=== PATIENT | female | born 1985 | race Caucasian/White ===

== ENCOUNTER → 2019-11-17 | Outpatient (CLI) | payer OTHER ==
[~2019-11-17] MED LIST: CLON0.5T PO; DULO30CA2 PO; LAMO100T37 PO; OMEP40CA45 PO
== END | disposition home or self-care (01) ==
LOC: LAB 13:49
PROVIDERS: ATTEND Nurse Anesthetist, Certified Registered
DX: Z01.818 Encounter for other preprocedural examination (principal); Z11.59 Encounter for screening for other viral diseases; Z12.11 Encounter for screening for malignant neoplasm of colon; Z85.038 Personal history of other malignant neoplasm of large intestine
CPT/HCPCS: U0003-CS

== ENCOUNTER → 2019-11-20 | Day surgery (SDC) | payer OTHER ==
[~2019-11-20] MED LIST changes: +IPRATRPIUM/ALBUTEROL 0.5/2.5MG 3 ML NEBU. NEB PRN; +IV RINGERS SOLUTION,LACTATED 1,000 ML IV SCH; +MIDAZOLAM HCL PF 2 MG/2 ML VIAL. IV ONE; +ONDANSETRON PF 4 MG/2 ML VIAL. IV PRN; +PROPOFOL 10,000 MCG/ML (20ML) VIAL IV ONE
[2019-11-20 10:53] VITALS: BP 118/74
== END | disposition home or self-care (01) ==
LOC: SURG 08:08
PROVIDERS: ATTEND Internal Medicine Gastroenterology
DX: Z09 Encounter for follow-up examination after completed treatment for conditions other than malignant neoplasm (principal); K57.30 Diverticulosis of large intestine without perforation or abscess without bleeding; K63.89 Other specified diseases of intestine; K21.9 Gastro-esophageal reflux disease without esophagitis; F32.9 Major depressive disorder, single episode, unspecified; E66.9 Obesity, unspecified; Z90.710 Acquired absence of both cervix and uterus; Z98.890 Other specified postprocedural states; Z88.8 Allergy status to other drugs, medicaments and biological substances; Z86.010 Personal history of colon polyps; Z79.899 Other long term (current) drug therapy; Z80.0 Family history of malignant neoplasm of digestive organs; Z88.1 Allergy status to other antibiotic agents
CPT/HCPCS: 45378; J2250; J2704; J7120

== ENCOUNTER 2020-01-29 09:44 | Emergency (ER) | payer OTHER ==
[~2020-01-29] VITALS: Ht 170.2 cm; Wt 97.0 kg
[~2020-01-29 09:44] MED LIST changes: -IPRATRPIUM/ALBUTEROL 0.5/2.5MG 3 ML NEBU. NEB PRN; -IV RINGERS SOLUTION,LACTATED 1,000 ML IV SCH; -MIDAZOLAM HCL PF 2 MG/2 ML VIAL. IV ONE; -ONDANSETRON PF 4 MG/2 ML VIAL. IV PRN; -PROPOFOL 10,000 MCG/ML (20ML) VIAL IV ONE
[2020-01-29 10:19] VITALS: BP 138/88
[2020-01-29] MEDS ORDERED: DOXY100C2 PO (11:32)
--- NOTE | 2020-01-29 11:33 | PHYS DOC ---
Past History Past Medical History: Anxiety, Depression Past Surgical History: Hysterectomy, Other Alcohol Use: None Adult General Chief Complaint Chief Complaint: ANIMAL BITE HPI HPI Patient is a 34-year-old female who presents for dog bite. Bite occurred approximately 24 hours ago at home, it was patient's own dog. Patient reports dog is fully vaccinated, no rabies, no other concerns. Patient has x2 separate puncture wounds which are scabbed over at present, after discussing incident with family member she was advised to seek care at our ER for potential antibiotic needs. Patient is otherwise asymptomatic, has not required anything for pain, no fever or draining exudate etc. Review of Systems Review of Systems Fourteen body systems of review of systems have been reviewed. See HPI for pertinent positives and negative responses, other gallagher all other systems are negative, non-pertinent or non-contributory Allergies Allergies Allergies Coded Allergies Type Severity Reaction Last Updated Verified ampicillin Allergy Unknown swelling 11/12/19 Yes Uncoded Allergies Type Severity Reaction Last Updated Verified DERMABOND Allergy Unknown swelling and itching 11/12/19 Physical Exam Physical Exam Constitutional: Well developed, well nourished, no acute distress, non-toxic appearance. HENT: Normocephalic, atraumatic, bilateral external ears normal, oropharynx moist, no oral exudates, nose normal. Eyes: PERRLA, EOMI, conjunctiva normal, no discharge. Neck: Normal range of motion, no tenderness, supple, no stridor. Cardiovascular: Heart rate regular, sinus rhythm, no murmurs rubs or gallops Lungs & Thorax: Bilateral breath sounds clear to auscultation Abdomen: Bowel sounds normal, soft, no tenderness, no masses, no pulsatile mass es. Nonsurgical abdomen, no peritoneal signs Skin: Warm, dry, no erythema, no rash. Back: No tenderness, no CVA tenderness. Extremities: No tenderness, no cyanosis, no clubbing, ROM intact, no edema. X2 healing puncture wounds without any signs of acute infection such as draining exudate, streaking, crepitus, fluctuant mass on right extensor surface of elbow without any tendon and/or muscle involvement Neurologic: Alert and oriented X 3, grossly normal motor & sensory function, no focal deficits noted. Psychologic: Affect normal, judgement normal, mood normal. Current Patient Data Vital Signs Vital Signs Date Time Temp Pulse Resp B/P (MAP) Pulse Ox O2 Delivery O2 Flow Rate FiO2 01/29/20 10:19 97.9 91 16 138/88 (105) 98 Room Air EKG EKG [] Radiology/Procedures Radiology/Procedures [] Heart Score Risk Factors: Risk Factors: DM, Current or recent (<one month) smoker, HTN, HLP, family history of CAD, obesity. Risk Scores: Risk Factors: DM, Current or recent (<one month) smoker, HTN, HLP, family history of CAD, obesity. Course & Med Decision Making Course & Med Decision Making Pertinent Labs and Imaging studies reviewed. (See chart for details) Discussed with patient there is no need for any immunizations and/or rabies prophylaxis at this time. Given dog bite, joint decision to treat with antibiotics. Allergic to ampicillin with unknown reaction, decision made to administer doxycycline Patient tolerated dose in ER, sent home with new prescription with close PCP follow-up in outpatient setting. Strict return precautions were discussed with good understanding, all questions and concerns addressed prior to ER departure in stable condition Dragon Disclaimer Dragon Disclaimer This electronic medical record was generated, in whole or in part, using a voice recognition dictation system. Departure Departure: Impression: Primary Impression: Dog bite Disposition: 01 DC HOME SELF CARE/HOMELESS Condition: STABLE Referrals: VEL SANDOVAL DO (PCP) Patient Instructions: Animal Bite, Doxycycline tablets or capsules Scripts Doxycycline Hyclate (DOXYCYCLINE HYCLATE) 100 Mg Capsule 1 CAP PO BID for DOG BITE, #13 CAP Prov: MONICA MURRY DO 01/29/20 MONICA MURRY DO Jan 29, 2020 11:32
[2020-01-29] MEDS ORDERED: DOXYCYCLINE HYCLATE 100 MG TABLET PO ONE (11:45)
== END 2020-01-29 11:34 | disposition home or self-care (01) ==
LOC: ER 09:44
DX: S51.031A Puncture wound without foreign body of right elbow, initial encounter (principal); Z88.1 Allergy status to other antibiotic agents; W54.0XXA Bitten by dog, initial encounter; Y93.89 Activity, other specified; Y92.89 Other specified places as the place of occurrence of the external cause; Y99.8 Other external cause status
CPT/HCPCS: 99283

== ENCOUNTER 2021-04-14 02:39 | Emergency (ER) | payer OTHER ==
[~2021-04-14] VITALS: Ht 165.1 cm; Wt 101.1 kg
[~2021-04-14 02:39] MED LIST changes: +DOXY100C3 PO; -OMEP40CA45 PO; +OMEP40CA7 PO
[2021-04-14 03:41] LABS: BILIRUBIN,URINE NEG (NEG); CLARITY,URINE CLOUDY; COLOR,URINE YELLOW; GLUCOSE,URINE NEG (NEG); NITRITE,URINE NEG (NEG); UROBILINOGEN,URINE 0.2 mg/dL (0.2 mg/dL)
[2021-04-14 03:42] LABS: BACTERIA,URINE FEW /HPF (0-FEW); SQUAMOUS EPITHELIAL CELL,UR FEW /LPF
[2021-04-14 04:30] VITALS: BP 147/99
--- NOTE | 2021-04-14 04:55 | PHYS DOC ---
Past History Past Medical History: Anxiety, Depression Past Medical History Hx. polys uterine and colon Past Surgical History: Hysterectomy, Other Alcohol Use: None General Adult EDM: Chief Complaint: BLOOD IN URINE HPI: HPI: ".. I am having really bad flank pain..here on right..and noticed some blood in my urine...and I don't have periods any more.." Patient is a 35 year old FEMALE who presents with above hx and complaints of pain with hematuria with abdomen pain. Pain more prevalent on right flank. Pain originally started somewhat higher on her back but has seemed to migrate lo wer into her pelvic region. Patient denies any previous history of kidney stones. There is no close first-degree relatives with kidney stones. Patient denies any intake of bad food. Patient denies any trauma. Patient denies any recent travel. Patient denies any history of immunosuppression. Patient does have a significant history of polyp formation in multiple organs and her intestines. Patient required a hysterectomy because intrauterine polyps. Patient has had to have colonoscopies with polypectomies 2 to 3 years. Patient states she has not gotten her 3-year colonoscopy as yet. Pain has been somewhat present last couple days. Patient relates that her overall abdomen has been somewhat uncomfortable and at times the entire abdomen somewhat crampy. Patient has passed a stool today. Patient has had history of urinary tract infections in the past. Patient has had hysterectomy. Patient normally follows with Dr. Sepulveda for primary care. Patient's initial urine did show 5-10 white cells and 5-10 RBCs. The patient denies any trauma. Review of Systems: Review of Systems: Constitutional: Denies fever or chills Eyes: Denies change in visual acuity HENT: Denies nasal congestion or sore throat Respiratory: Denies cough or shortness of breath Cardiovascular: Denies chest pain or edema GI: Complains of generalized as well as right flank abdominal pain, nausea,. Denies vomiting, bloody stools or diarrhea : Denies dysuria Musculoskeletal: Complains of right flank back pain Integument: Denies rash Neurologic: Denies headache, focal weakness or sensory changes Endocrine: Denies polyuria or polydipsia Lymphatic: Denies swollen glands Psychiatric: Denies depression or anxiety Family History: Family History: History of colon cancer with her mother who had excessive polyp formation Current Medications: Current Meds: See nursing for home meds Current Medications Medications (Trade) Dose Ordered Sig/Ulisses Start Time Stop Time Status Last Admin Dose Admin Ketorolac Tromethamine (Toradol 30mg Vial) 30 mg 1X ONCE 04/14/21 05:00 04/14/21 05:01 UNV Allergies: Allergies: Allergies Coded Allergies Type Severity Reaction Last Updated Verified ampicillin Allergy Unknown swelling 11/12/19 Yes Uncoded Allergies Type Severity Reaction Last Updated Verified DERMABOND Allergy Unknown swelling and itching 11/12/19 Physical Exam: PE: Constitutional: In moderate acute distress, non-toxic appearance. [] HENT: Normocephalic, atraumatic, bilateral external ears normal, oropharynx moist, no oral exudates, nose normal. [] Eyes: PERRLA, EOMI, conjunctiva normal, no discharge. [] Neck: Normal range of motion, no tenderness, supple, no stridor. [] Cardiovascular:Heart rate regular rhythm, no murmur [] Lungs & Thorax: Bilateral breath sounds equal apex on auscultation [] Abdomen: Bowel sounds decreased, soft, generalized tenderness, no masses, no pul satile masses. Did have right flank back pain on percussion which seemed to terminate just above the bladder. Skin: Warm, dry, no erythema, no rash. [] Back: No tenderness, no CVA tenderness. [] Extremities: No tenderness, no cyanosis, no clubbing, ROM intact, no edema. No cording. No psoas sign. Neurologic: Alert and oriented X 3, normal motor function, normal sensory function, no focal deficits noted. [] Psychologic: Affect anxious , judgement normal, mood normal. [] Current Patient Data: Labs: Laboratory Tests Test 04/14/21 02:44 Urine Collection Type Unknown Urine Color Yellow Urine Clarity Cloudy Urine pH 6.5 Urine Specific [place] 1.025 Urine Protein 30 mg/dl (NEG-TRACE) Urine Glucose (UA) Neg mg/dL (NEG) Urine Ketones (Stick) Neg mg/dL (NEG) Urine Blood Large (NEG) Urine Nitrite Neg (NEG) Urine Bilirubin Neg (NEG) Urine Urobilinogen Dipstick 0.2 mg/dL (0.2 mg/dL) Urine Leukocyte Esterase Mod (NEG) Urine RBC 6-10 /HPF (0-2) Urine WBC 5-10 /HPF (0-4) Urine Squamous Epithelial Cells Few /LPF Urine Bacteria Few /HPF (0-FEW) EKG: EKG: [] Radiology/Procedures: Radiology/Procedures: [[address] [address] IMAGING REPORT Signed PATIENT: KISHORE SHER ACCOUNT: [id number] : 1985 LOCATION: ER AGE: 35 SEX: F EXAM STATUS: REG ER ORD. PHYSICIAN: GRUPO HUBER MD REASON: abd pain, hematuria PROCEDURE: ACUTE ABDOMEN SERIES XR ABDOMEN COMP ACUTE History: Reason: abd pain, hematuria / Spl. Instructions: / History: Technique: Supine and upright views of the abdomen. Comparison: CT April 14, 2021 Findings: No consolidation or pleural effusion. No pneumothorax. Normal heart size. No pneumoperitoneum. Mild small bowel gas. Air and stool throughout the colon. Impression: 1. Nonobstructed bowel gas pattern. Electronically signed by: Nicholas Florentino DO (04/14/2021 6:30 AM) [facility] DICTATED AND SIGNED BY: NICHOLAS FLORENTINO DO DATE: 04/14/21628 CC: GRUPO HUBER MD; VEL SEPULVEDA DO ~MTH0 0 ][address] [address] IMAGING REPORT Signed PATIENT: KISHORE SHER ACCOUNT: [id number] : 1985 LOCATION: ER AGE: 35 SEX: F EXAM STATUS: REG ER ORD. PHYSICIAN: GRUPO HUBER MD REASON: HEMATURIA, right FLANK and lowert pelvic PAIN PROCEDURE: CT ABDOMEN PELVIS WO CONTRAST CT ABDOMEN+PELVIS WO History: Reason: HEMATURIA, right FLANK and lowert pelvic PAIN / Spl. Instruct ions: / History: Technique: Noncontrast examination of the abdomen and pelvis. Coronal and sagittal reconstructions were performed. Exposure: One or more of the following individualized dose reduction techniques were utilized for this examination: 1. Automated exposure control 2. Adjustment of the mA and/or kV according to patient size 3. Use of iterative reconstruction technique. Comparison: None Findings: Lower chest: 3 mm left lower lobe pulmonary nodule (series 2 image 13). 4 mm right middle lobe pulmonary nodule (image 5). Abdomen and pelvis: Hepatic steatosis. The spleen, adrenal glands, pancreas and gallbladder are unremarkable. No biliary ductal dilatation. 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 No renal, ureteral or urinary bladder calculus. Normal appearance of the urinary bladder. No hydronephrosis. Normal appendix. No evidence of bowel obstruction. Multiple mildly prominent mesenteric lymph nodes with infiltration of the mesentery. No ascites. Prior hysterectomy. Bones: No pathologic osseous lesions. Impression: 1. No abdominal or pelvic pathology. No obstructing urolithiasis. 2. 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 Comparison with prior imaging studies would be of benefit. 3. Hepatic steatosis. 4. Small pulmonary nodules. Recommend one-year follow-up chest CT without contrast if high risk. Electronically signed by: Nicholas Florentino DO (04/14/2021 5:09 AM) [facility] DICTATED AND SIGNED BY: NICHOLAS FLORENTINO DO DATE: 04/14/21 0503 CC: GRUPO HUBER MD; VEL SEPULVEDA DO ~MTH0 0 Heart Score: C/O Chest Pain: N/A HEART Score for Chest Pain: HEART Score for Chest Pain Response (Comments) Value History Slighlty/Non-Suspicious 0 ECG Normal 0 Age < 45 0 Risk Factors No Risk Factors 0 Troponin < Normal Limit 0 Total 0 Risk Factors: Risk Factors: DM, Current or recent (<one month) smoker, HTN, HLP, family history of CAD, obesity. Risk Scores: Score 0 - 3: 2.5% MACE over next 6 weeks - Discharge Home Score 4 - 6: 20.3% MACE over next 6 weeks - Admit for Clinical Observation Score 7 - 10: 72.7% MACE over next 6 weeks - Early Invasive Strategies Course & Med Decision Making: Course & Med Decision Making Pertinent Labs and Imaging studies reviewed. (See chart for details) Reviewed at length with patient her CT results. Patient's pain is relatively controlled with her dose of Toradol. No definitive renal stone appreciated. 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 Patient's labs still pending to be drawn because of lack of nursing staff to handle the extensive patient load due to COVID virus. Patient at this time requesting discharge. States she feels she can defer the lab results and COVID testing at this time. Her plan is that she will follow-up with her primary care she will follow-up with her GI to complete her screening colonoscopy for her recurrent polyps. Patient encouraged to stay on clear fluid diet only for the next 2 days. No solids. No milk products. Push clear fluids. Such as 7-Up, Coca-Cola, Gatorade, Pedialyte, Jell-O, clear broth, apple juice, grape juice, popsicles etc. patient take Zofr an for active nausea and vomiting 8 mg up to 4 times a day. Patient may take Vicoprofen 1 tablet 4 times a day for marked pain. Patient return if any concerns. In the event that her symptoms may be viral related advised her to self isolate the next 5 days. If required by her work status to get a repeat COVID testing in 5 days. Patient return if any concerns. Keep follow-up with GI and keep follow-up with her primary care. Follow-up pending urine cultures. Follow-up any pending labs. Review ED evaluation with primary care. Cipro 500 mg twice a day. After completing 10-day course take Diflucan 100 mg x 3 days. [] Impression: 1. Abdomen pain 2. Hematuria. 3. Mesenteric adenitis 4. Patient has history of multiple polyps 5. Small pulmonary nodule left lower lung field.(-Repeat CT 6 months to 1 year.) Krystal Disclaimer: Krystal Disclaimer: This electronic medical record was generated, in whole or in part, using a voice recognition dictation system. Departure Departure: Referrals: VEL SEPULVEDA DO (PCP) Scripts Fluconazole (DIFLUCAN) 100 Mg Tablet 100 MG PO DAILY for post antibiotics for 3 Days, #3 TAB Prov: GRUPO HUBER MD 04/14/21 Hydrocodone/Ibuprofen (HYDROCODONE-IBUPROFEN 7.5-200 ) 1 Each Tablet 1 TAB PO PRN Q6HRS PRN for PAIN, #30 TAB 0 Refills Prov: GRUPO HUBER MD 04/14/21 Ondansetron (ONDANSETRON ODT) 4 Mg Tab.rapdis 8 MG PO QIDPRN PRN for NAUSEA/VOMITING, #30 TAB Prov: GRUPO HUBER MD 04/14/21 Ciprofloxacin (CIPRO) 500 Mg/5 Ml Talia.mc.rec 500 MG PO BID for uti, #20 MISC Prov: GRUPO HUBER MD 04/14/21 Dragon Disclaimer This chart was dictated in whole or in part using Voice Recognition software in a busy, high-work load, and often noisy Emergency Department environment. It may contain unintended and wholly unrecognized errors or omissions. GRUPO HUBER MD Apr 14, 2021 04:55
[2021-04-14] MEDS ORDERED: KETOROLAC 30 MG/ML VIAL. IM ONE (05:00)
--- NOTE | 2021-04-14 05:11 | RAD ---
CT ABDOMEN+PELVIS WO History: Reason: HEMATURIA, right FLANK and lowert pelvic PAIN / Spl. Instructions: / History: Technique: Noncontrast examination of the abdomen and pelvis. Coronal and sagittal reconstructions we re performed. Exposure: One or more of the following individualized dose reduction techniques were utilized for thi s examination: 1. Automated exposure control 2. Adjustment of the mA and/or kV according to patient size 3. Use of iterative reconstruction technique. Comparison: None Findings: Lower chest: 3 mm left lower lobe pulmonary nodule (series 2 image 13). 4 mm right middle lobe pulmon zainab nodule (image 5). Abdomen and pelvis: Hepatic steatosis. The spleen, adrenal glands, pancreas and gallbladder are unrem arkable. No biliary ductal dilatation. 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 No renal, ureteral or urinary bladder calc ulus. Normal appearance of the urinary bladder. No hydronephrosis. Normal appendix. No evidence of bowel obstruction. Multiple mildly prominent mesenteric lymph nodes w ith infiltration of the mesentery. No ascites. Prior hysterectomy. Bones: No pathologic osseous lesions. Impression: 1. No abdominal or pelvic pathology. No obstructing urolithiasis. 2. 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 Com parison with prior imaging studies would be of benefit. 3. Hepatic steatosis. 4. Small pulmonary nodules. Recommend one-year follow-up chest CT without contrast if high risk. Electronically signed by: Nicholas Florentino DO (04/14/2021 5:09 AM) [facility]
[2021-04-14] MEDS ORDERED: TAMSULOSIN 0.4 MG CAP.ER.24H. PO ONE (05:30)
[2021-04-14] MEDS ORDERED: CIPROFLOXACIN HCL 500 MG TABLET PO ONE (05:30)
[2021-04-14] MEDS ORDERED: HYDR-1179 PO (06:23)
[2021-04-14] MEDS ORDERED: CIPR500S2 PO (06:23)
[2021-04-14] MEDS ORDERED: ONDA4TAB12 PO (06:23)
--- NOTE | 2021-04-14 06:33 | RAD ---
XR ABDOMEN COMP ACUTE History: Reason: abd pain, hematuria / Spl. Instructions: / History: Technique: Supine and upright views of the abdomen. Comparison: CT April 14, 2021 Findings: No consolidation or pleural effusion. No pneumothorax. Normal heart size. No pneumoperitoneum. Mild small bowel gas. Air and stool throughout the colon. Impression: 1. Nonobstructed bowel gas pattern. Electronically signed by: Nicholas Florentino DO (04/14/2021 6:30 AM) [facility]
[2021-04-14] MEDS ORDERED: FLUC100T7 PO (06:34)
[2021-04-14] MEDS ORDERED: FAMOTIDINE 20 MG/2 ML VIAL IVP ONE (07:00)
[2021-04-14] MEDS ORDERED: IV RINGERS SOLUTION,LACTATED 1,000 ML IV ONE (07:00)
[2021-04-14] MEDS ORDERED: ONDANSETRON PF 4 MG/2 ML VIAL. IVP ONE (07:00)
== END 2021-04-14 07:12 | disposition home or self-care (01) ==
LOC: ER 02:39
DX: I88.0 Nonspecific mesenteric lymphadenitis (principal); R91.1 Solitary pulmonary nodule; R31.9 Hematuria, unspecified; Z90.710 Acquired absence of both cervix and uterus; Z88.1 Allergy status to other antibiotic agents
CPT/HCPCS: 74022; 74176; 81001; 87086; 96372; 99285; J1885